=== PATIENT | female | born 1990 | race American Indian/Alaskan Native ===

== ENCOUNTER 2020-10-03 12:58 | Outpatient (CLI) | payer OTHER ==
--- NOTE | 2020-10-03 13:54 | Ultrasound Report ---
ULTRASOUND BREAST LEFT LIMITED, 10/03/2020 CLINICAL INFORMATION / INDICATION: Patient presents for evaluation of an area of focal pain in the le ft breast. TECHNIQUE: Targeted ultrasound evaluation was performed of the area of interest. COMPARISON: None. FINDINGS: Targeted ultrasound of the area of focal pain in the 7 through 9:00 position of the left breast revea ls normal fibroglandular tissue. No suspicious cystic or solid lesion identified. IMPRESSION: 1. No sonographic abnormality to account for the area of focal pain in the left breast, therefore cli nical correlation is recommended. Follow up recommendation: Unless otherwise clinically indicated, recommend patient return to routine screening mammography at age 39. BI-RADS Category 1: Negative. A normal or "negative" report should not preclude biopsy or follow-up of a clinically suspicious find ing. Signer Name: Anne Estrada MD Signed: 10/03/2020 1:50 PM Workstation Name: [email or web address]
== END 2020-10-03 12:59 | disposition home or self-care (01) ==
LOC: SPVWC 12:58
PROVIDERS: ATTEND Advanced Practice Midwife
DX: N60.02 Solitary cyst of left breast (principal)